=== PATIENT | female | born 1975 | race Caucasian/White ===

== ENCOUNTER 2017-03-13 10:41 | Emergency (ER) | payer OTHER | END 2017-03-13 13:05 | disposition home or self-care (01) | LOC: C.ER 10:41 | DX: J06.9 Acute upper respiratory infection, unspecified (principal); T78.40XA Allergy, unspecified, initial encounter ==

== ENCOUNTER 2017-07-08 10:04 | Emergency (ER) | payer OTHER ==
[2017-07-08 10:10] VITALS: TEMP 98.6
--- NOTE | 2017-07-08 12:04 | C.PDOC ---
History Of Present Illness Pt c/o posterior left foot pain. Denies any specific trauma. Time Seen by Provider: 07/08/17 10:39 Chief Complaint (Nursing): Lower Extremity Problem/Injury History Per: Patient Onset/Duration Of Symptoms: Days (about 2 weeks) Current Symptoms Are (Timing): Still Present Severity: Moderate Additional History Per: Prior Records - Ankle/Foot Feet: 1 - pain Past Medical History Reviewed: Historical Data, Nursing Documentation, Vital Signs Vital Signs: Last Vital Signs Temp 98.6 F 07/08/17 10:06 Pulse 66 07/08/17 10:06 Resp 18 07/08/17 10:06 BP 110/80 07/08/17 10:06 Pulse Ox 99 07/08/17 12:05 - Medical History PMH: No Chronic Diseases Surgical History: No Surg Hx Family History: States: Unknown Family Hx - Social History Hx Alcohol Use: No Hx Substance Use: No - Immunization History Hx Tetanus Toxoid Vaccination: No Hx Influenza Vaccination: No Hx Pneumococcal Vaccination: No Review Of Systems Except As Marked, All Systems Reviewed And Found Negative. Constitutional: Negative for: Fever Cardiovascular: Negative for: Chest Pain Respiratory: Negative for: Shortness of Breath Gastrointestinal: Negative for: Vomiting, Abdominal Pain Musculoskeletal: Positive for: Foot Pain (left). Negative for: Back Pain Skin: Negative for: Rash Neurological: Negative for: Weakness, Numbness Physical Exam - Physical Exam Appears: Non-toxic, No Acute Distress Skin: Normal Color, Warm, Dry, No Rash Head: Atraumatic, Normacephalic Eye(s): bilateral: PERRL, EOMI Neck: Normal ROM, Supple Extremity: Normal ROM, Tenderness (plantar/medial aspect of left posterior foot) , No Pedal Edema, No Calf Tenderness, No Deformity, No Swelling Extremity: Bilateral: Normal Color And Temperature Pulses: Left Dorsalis Pedis: Normal Neurological/Psych: Oriented x3, Normal Motor, Normal Sensation ED Course And Treatment O2 Sat by Pulse Oximetry: 99 Pulse Ox Interpretation: Normal - Other Rad Left foot x-rays X-Ray: Interpreted by Me, Viewed By Me Interpretation: No acute fx. Heel spur present. Reassessment Condition: Improved Disposition Counseled Patient/Family Regarding: Studies Performed, Diagnosis, Need For Followup, Rx Given - Disposition Referrals: Podiatry Clinic [Outside] Disposition: HOME/ ROUTINE Disposition Time: 12:10 Condition: IMPROVED Additional Instructions: Follow up with a Accounts Receivable Processor (Foot doctor) for further evaluation and treatment. Return to the ER if you develop redness, swelling, worsening of symptoms or if you have any other concerns. Prescriptions: Ibuprofen [Motrin Tab] 600 mg PO Q8 PRN #30 tab PRN Reason: Pain, Moderate (4-7) Instructions: Heel Spur (ED) Forms: [employer] ([place]) Print Language: YORUBA - Clinical Impression Clinical Impression: Heel spur
[2017-07-08 12:27] VITALS: BP 128/78; PULSE 64; RESP 16; O2SAT 98
--- NOTE | 2017-07-08 14:45 | RAD ---
PROCEDURE: Left Foot Radiographs. HISTORY: Posterior foot pain COMPARISON: None. FINDINGS: BONES: Inferior calcaneal spur. Posterior calcaneal spurring -blending Achilles tendon enthesophyte No fracture. JOINTS: Normal. SOFT TISSUES: Normal. OTHER FINDINGS: None. IMPRESSION: Calcaneal spurring
== END 2017-07-08 12:27 | disposition home or self-care (01) ==
LOC: C.ER 10:04
DX: M77.32 Calcaneal spur, left foot (principal)

== ENCOUNTER 2019-01-01 08:13 | Emergency (ER) | payer OTHER | END 2019-01-01 13:44 | disposition home or self-care (01) | LOC: C.ER 08:13 ==